=== PATIENT | female | born 1985 | race Hispanic/Latino ===

== ENCOUNTER 2016-12-15 11:12 | Emergency (ER) | payer SELFPAY ==
[2016-12-15 11:13] VITALS: BMI 26.5
[2016-12-15] MEDS ORDERED: Sodium Chloride 0.9% 1,000 ML IV STA ×2 (12:23→15:38)
[2016-12-15] MEDS ORDERED: cefTRIAXone 1 gm 100 ML IVPB STA (12:24)
--- NOTE | 2016-12-15 12:33 | ED PDOC ---
Arrival/HPI - General Chief Complaint: Back Pain Time Seen by Provider: 12/15/16 12:19 Historian: Patient - History of Present Illness Narrative History of Present Illness (Text): 12/15/16 12:20 A 31 year old female who comes into the emergency department complaining of left flank pain for the past two days. Pain is associated with dysuria and chills. Patient notes this morning she had nausea with non bloody non bilious vomiting. Patient denies any fever, chest pain, or other complaints at this time. Time/Duration: Other (2 days) Symptom Onset: Sudden Symptom Course: Unchanged Quality: Burning, Other Activities at Onset: Rest Context: Home Past Medical History - Provider Review Nursing Documentation Reviewed: Yes - Past History Past History: No Previous - Infectious Disease Hx of Infectious Diseases: None - Tetanus Immunization Tetanus Immunization: Unknown - Reproductive Menopause: No - Psychiatric Hx Depression: No Hx Emotional Abuse: No Hx Physical Abuse: No Hx Substance Use: No - Anesthesia Hx Anesthesia: No Hx Anesthesia Reactions: No Hx Malignant Hyperthermia: No - Suicidal Assessment Feels Threatened In Home Enviroment: No Family/Social History - Physician Review Nursing Documentation Reviewed: Yes Family/Social History: Unknown Family HX Smoking Status: Never Smoked Hx Alcohol Use: Yes Frequency of alcohol use: Socially Hx Substance Use: No Hx Substance Use Treatment: No Allergies/Home Meds Allergies/Adverse Reactions: Allergies No Known Allergies Allergy (Verified 08/18/12 14:32) Home Medications: Home Meds Medication Instructions Recorded Confirmed No Known Home Med 12/15/16 12/15/16 Review of Systems - Physician Review All systems were reviewed & negative as marked: Yes - Review of Systems Constitutional: Other (chills). absent: Fevers Respiratory: absent: SOB Cardiovascular: absent: Chest Pain Gastrointestinal: Nausea, Vomiting Genitourinary Female: Dysuria Musculoskeletal: Other (left flank) Physical Exam Vital Signs Reviewed: Yes Vital Signs Temp Pulse Resp BP Pulse Ox 12/15/16 16:41 100.5 F H 12/15/16 16:28 101 H 16 119/62 100 12/15/16 14:01 80 16 102/39 L 100 12/15/16 12:13 97.9 F 99 H 18 108/55 L 98 12/15/16 12:07 97.9 F 99 H 18 108/55 L 98 Temperature: Afebrile Blood Pressure: Hypotensive Pulse: Regular Respiratory Rate: Normal Appearance: Positive for: Well-Appearing, Non-Toxic, Comfortable Pain Distress: None Mental Status: Positive for: Alert and Oriented X 3 - Systems Exam Head: Present: Atraumatic, Normocephalic Pupils: Present: PERRL Extroacular Muscles: Present: EOMI Conjunctiva: Present: Normal Mouth: Present: Moist Mucous Membranes Neck: Present: Normal Range of Motion Respiratory/Chest: Present: Clear to Auscultation, Good Air Exchange. No: Respiratory Distress, Accessory Muscle Use Cardiovascular: Present: Regular Rate and Rhythm, Normal S1, S2. No: Murmurs Abdomen: Present: Normal Bowel Sounds. No: Tenderness, Distention, Peritoneal Signs Back: Present: CVA Tenderness (left) Upper Extremity: Present: Normal Inspection. No: Cyanosis, Edema Lower Extremity: Present: Normal Inspection. No: Edema Neurological: Present: GCS=15, CN II-XII Intact, Speech Normal Skin: Present: Warm, Dry, Normal Color. No: Rashes Psychiatric: Present: Alert, Oriented x 3, Normal Insight, Normal Concentration Medical Decision Making ED Course and Treatment: 12/15/16 12:20 Impression: A 31 year old female with left flank pain. Differential Diagnosis include but are not limited to: nephrolithiasis Plan: -- Labs -- Urinalysis -- Rocephin, Zofran and IV Fluids -- Reassess and disposition Progress Notes: 12/15/16 15:27 pt reassesed. comfortable in bed. pt states pain improved. no leukocytosis. abd soft. pt offered observation in hospital, but prefers outpt trial for pyelo. no stone seen on ct. hemodynamically stable. advse outpt f/ua nd return precautions 12/15/16 17:07 pt spiked fever in er priort od/c. tylenol given. pt observed. now asking for d/ c - Lab Interpretations Lab Results: 12/15/16 13:04 12/15/16 13:04 Lab Results 12/15/16 13:04: WBC 10.9, RBC 4.26, Hgb 12.1, Hct 36.0, MCV 84.5, MCH 28.4, MCHC 33.6, RDW 13.3, Plt Count 262, MPV 9.4, Gran % 79.5 H, Lymph % (Auto) 9.4 L , [place] % (Auto) 10.8 H, Eos % (Auto) 0.1 L, Baso % (Auto) 0.2, Gran # 8.68 H, Lymph # 1.0 L, [place] # 1.2 H, Eos # 0.0, Baso # 0.02, PT 10.9, INR 1.01, APTT 29.7, Sodium 140, Potassium 3.6, Chloride 100, Carbon Dioxide 30, Anion Gap 14, BUN 10, Creatinine 0.7, Est GFR ( Amer) > 60, Est GFR (Non-Af Amer) > 60 , Random Glucose 91, Calcium 9.0, Total Bilirubin 1.0, AST 19, ALT 26, Alkaline Phosphatase 69, Total Protein 8.3, Albumin 4.3, Globulin 4.0, Albumin/Globulin Ratio 1.1, Lipase 106, Urine Color Yellow, Urine Appearance Turbid, Urine pH 6.0 , Ur Specific [place] 1.010, Urine Protein 30 H, Urine Glucose (UA) Negative, Urine Ketones Negative, Urine Blood Moderate H, Urine Nitrate Negative, Urine Bilirubin Negative, Urine Urobilinogen 0.2, Ur Leukocyte Esterase Large H, Urine RBC 0 - 2, Urine WBC Tntc, Ur Epithelial Cells 4 - 5, Urine Bacteria Many , Urine HCG, Qual Negative I have reviewed the lab results: Yes - RAD Interpretation Radiology Orders: 12/15/16 13:25 ABD & PELVIS W/O PO OR IV CONT [CT] Stat - Medication Orders Current Medication Orders: Discontinued Medications Acetaminophen (Tylenol 325mg Tab) 975 mg PO STAT STA Stop: 12/15/16 15:40 Last Admin: 12/15/16 16:18 Dose: 975 MG MAR Pain/Vitals Document 12/15/16 16:18 HI (Rec: 12/15/16 16:18 HI [id number]) Pain Reassessment Is This A Pain ReAssessment? Yes Sleep Is patient sleeping during reassessment? No Presence of Pain Presence of Pain Yes Pain Scale Used Pain Scale Used Numeric Location Pain Location Body Site Back Sodium Chloride (Sodium Chloride 0.9%) 1,000 mls @ 1,000 mls/hr IV .Q1H STA Stop: 12/15/16 13:22 Last Admin: 12/15/16 13:06 Dose: 1,000 MLS/HR eMAR Start Stop Document 12/15/16 13:06 HI (Rec: 12/15/16 13:06 [place] [id number]) Intravenous Solution Start Date 12/15/16 Start Time 13:06 Ceftriaxone Sodium (Rocephin 1 Gram Ivpb) 100 mls @ 200 mls/hr IVPB STAT STA PRN Reason: Protocol Stop: 12/15/16 12:53 Last Admin: 12/15/16 13:06 Dose: 200 MLS/HR eMAR Start Stop Document 12/15/16 13:06 HI (Rec: 12/15/16 13:06 [place] [id number]) Intravenous Solution Start Date 12/15/16 Start Time 13:06 Sodium Chloride (Sodium Chloride 0.9%) 1,000 mls @ 999 mls/hr IV .Q1H1M STA Stop: 12/15/16 16:38 Last Admin: 12/15/16 16:19 Dose: 999 MLS/HR eMAR Start Stop Document 12/15/16 16:19 HI (Rec: 12/15/16 16:19 [place] [id number]) Intravenous Solution Start Date 12/15/16 Start Time 16:19 Ketorolac Tromethamine (Toradol) 30 mg IVP STAT STA Stop: 12/15/16 13:19 Last Admin: 12/15/16 13:26 Dose: 30 MG IVP Administration Document 12/15/16 13:26 HI (Rec: 12/15/16 13:26 [place] [id number]) Charges for Administration # of IVP Administrations 1 Ondansetron HCl (Zofran Inj) 4 mg IVP STAT STA Stop: 12/15/16 12:24 Last Admin: 12/15/16 13:06 Dose: 4 MG IVP Administration Document 12/15/16 13:06 HI (Rec: 12/15/16 13:06 [place] [id number]) Charges for Administration # of IVP Administrations 1 - Scribe Statement The provider has reviewed the documentation as recorded by the Scribe Rosemary Hernandez Provider Scribe Attestation: All medical record entries made by the Scribe were at my direction and personally dictated by me. I have reviewed the chart and agree that the record accurately reflects my personal performance of the history, physical exam, medical decision making, and the department course for this patient. I have also personally directed, reviewed, and agree with the discharge instructions and disposition. Disposition/Present on Arrival - Present on Arrival Any Indicators Present on Arrival: No History of DVT/PE: No History of Uncontrolled Diabetes: No Urinary Catheter: No History of Decub. Ulcer: No History Surgical Site Infection Following: None - Disposition Have Diagnosis and Disposition been Completed?: Yes Diagnosis: Pyelonephritis Disposition: HOME/ ROUTINE Disposition Time: 15:29 Patient Problems: Current Active Problems Problem Status Diagnosed Pyelonephritis Acute Condition: STABLE Discharge Instructions (ExitCare): Urinary Tract Infection in Women (DC), Acute Pyelonephritis (ED) Additional Instructions: please follow up with your doctor/clinic and specialist. return to er with worsening symptoms or concerns. Referrals: PCP,NO [Primary Care Provider] - Follow up with primary [facility] [Outside] - Follow up with primary [facility] [place] [Outside] - Follow up with primary Josias Dailey MD [Staff Provider] - Follow up with primary
[2016-12-15 13:10] LABS: ADD MANUAL DIFF? NO
[2016-12-15 13:14] LABS: BASO # 0.02 K/mm3 (0.0-2.0); BASO % 0.2 % (0.0-3.0); EOS % 0.1 % (1.5-5.0); GRAN # 8.68 (1.4-6.5); GRAN % 79.5 % (50.0-68.0); LYMPH % 9.4 % (22.0-35.0); MEAN CELL VOLUME 84.5 fL (80.0-105.0); MEAN CORPUSCULAR HEMOGLOBIN 28.4 pg (25.0-35.0); MEAN CORPUSCULAR HGB CONC 33.6 g/dl (31.0-37.0); MEAN PLATELET VOLUME 9.4 fl (7.0-11.0); MONO # 1.2 (0.1-0.6); MONO % 10.8 % (1.0-6.0); PLATELET COUNT 262 10^3/uL (120.0-450.0); RED CELL DISTRIBUTION WIDTH 13.3 % (11.5-14.5); URINE BILIRUBIN NEGATIVE (NEGATIVE); URINE BLOOD MODERATE (NEGATIVE); URINE GLUCOSE (UA) NEGATIVE (NEGATIVE); URINE KETONE NEGATIVE (NEGATIVE); URINE LEUKOCYTE ESTERASE LARGE Leu/uL (NEGATIVE); URINE PROTEIN 30 mg/dL (<30 mg/dL); URINE UROBILINOGEN 0.2 E.U./dL (<1 E.U./dL); WHITE BLOOD COUNT 10.9 10^3/ul (4.5-11.0)
[2016-12-15 13:16] LABS: URINE APPEARANCE TURBID (CLEAR); URINE COLOR YELLOW (YELLOW)
[2016-12-15 13:22] LABS: URINE BACTERIA MANY (NEG); URINE RBC 0 - 2 /hpf (0-2); URINE WBC TNTC /hpf (0-6)
[2016-12-15 13:25] LABS: INR 1.01 (0.93-1.08); PARTIAL THROMBOPLASTIN TIME 29.7 Seconds (23.7-30.8)
[2016-12-15 13:26] LABS: ALB/GLOB RATIO 1.1 (1.1-1.8); ALKALINE PHOSPHATASE 69 U/L (38-133); ALT/SGPT 26 U/L (7-56); AST/SGOT 19 U/L (15-39); BLOOD UREA NITROGEN 10 mg/dL (7-21); CARBON DIOXIDE 30 mmol/L (21-33); CHLORIDE 100 mmol/L (98-107); GFR AFRICAN-AMERICAN > 60; GLUCOSE,RANDOM 91 mg/dL (70-110); LIPASE 106 U/L (23-300); POTASSIUM 3.6 mmol/L (3.6-5.0); SODIUM 140 mmol/L (132-148); TOTAL PROTEIN 8.3 g/dL (5.8-8.3)
[2016-12-15 14:04] VITALS: RESP 16; O2SAT 100
--- NOTE | 2016-12-15 15:21 | CT ---
PROCEDURE: CT Abdomen and Pelvis without intravenous contrast HISTORY: left flank pain COMPARISON: None. TECHNIQUE: Without contrast.. Contrast Dose: Radiation dose: Total exam DLP = 350 mGy-cm. This CT exam was performed using one or more of the following dose reduction techniques: Automated exposure control, adjustment of the mA and/or kV according to patient size, and/or use of iterative reconstruction technique. FINDINGS: LOWER THORAX: Unremarkable. LIVER: Unremarkable. No gross lesion or ductal dilatation. GALLBLADDER AND BILE DUCTS: Unremarkable. PANCREAS: Unremarkable. No gross lesion or ductal dilatation. SPLEEN: Unremarkable. ADRENALS: Unremarkable. No mass. KIDNEYS AND URETERS: Unremarkable. No hydronephrosis. No solid mass. VASCULATURE: Unremarkable. No aortic aneurysm. BOWEL: Unremarkable. No obstruction. No gross mural thickening. APPENDIX: Unremarkable. Normal appendix. PERITONEUM: Unremarkable. No free fluid. No free air. LYMPH NODES: Unremarkable. No enlarged lymph nodes. BLADDER: Unremarkable. REPRODUCTIVE: Unremarkable. BONES: No acute fracture. OTHER FINDINGS: None. IMPRESSION: Unremarkable non contrast enhanced CT of the abdomen and pelvis.
[2016-12-15 17:53] VITALS: BP 120/72; PULSE 95; TEMP 99
--- NOTE | 2016-12-17 14:40 | ED PDOC ---
ED Additional Note - Physician Additional Note Physician Additional Note: spoke with patient; regarding urine culture; although the chart does not show that the patient was d/c'd home on abx, she states she is currently taking an "orange-lana pill". pt states she doesn't know the name of the antibiotic. i have advised the patient to call the Er when she gets home and tell me the name of the antibiotic. Pt also states she has slightly pruritic rash to the chest. ? allergic reaction; when we speak to the patient again, we will consider changing the antibiotic based on sensitivities, assuming possible allergic reaction.
== END 2016-12-15 17:53 | disposition home or self-care (01) ==
LOC: ED 11:12
DX: N10 Acute pyelonephritis (principal)
CPT/HCPCS: 74176; 80053; 81001; 83690; 84703; 85025; 85610; 85730; 87086; 87181; 96374; 96375; 99284; J0696; J1885; J2405; J7040